=== PATIENT | female | born 2000 | race Caucasian/White ===

== ENCOUNTER 2021-11-16 21:07 | Emergency (ER) | payer MEDICAID ==
[~2021-11-16] VITALS: Ht 154.9 cm; Wt 79.4 kg
[2021-11-16] MEDS ORDERED: AMOCLA875 PO (21:45)
== END 2021-11-16 21:50 | disposition home or self-care (01) ==
LOC: ER 21:07
DX: K04.7 Periapical abscess without sinus (principal); F17.200 Nicotine dependence, unspecified, uncomplicated
CPT/HCPCS: A9270

== ENCOUNTER 2022-01-27 21:27 | Emergency (ER) | payer OTHER ==
[~2022-01-27] VITALS: Ht 154.9 cm; Wt 86.2 kg
[~2022-01-27 21:27] MED LIST: AMOCLA875 PO
[2022-01-27] MEDS ORDERED: AMOCLA875 PO (22:17)
== END 2022-01-27 22:25 | disposition home or self-care (01) ==
LOC: ER 21:27
DX: K04.7 Periapical abscess without sinus (principal); F17.200 Nicotine dependence, unspecified, uncomplicated
CPT/HCPCS: 99282; A9270

== ENCOUNTER 2022-05-11 06:05 | Emergency (ER) | payer OTHER ==
[~2022-05-11] VITALS: Ht 154.9 cm; Wt 86.2 kg
== END 2022-05-11 06:39 | disposition home or self-care (01) ==
LOC: ER 06:05
DX: Z11.4 Encounter for screening for human immunodeficiency virus [HIV] (principal); Z87.891 Personal history of nicotine dependence
CPT/HCPCS: 99282

== ENCOUNTER 2022-09-12 11:32 | Emergency (ER) | payer OTHER ==
[~2022-09-12] VITALS: Ht 154.9 cm; Wt 64.9 kg
[2022-09-12 12:24] LABS: BASOPHILS ABSOLUTE AUTO 0.02 K/mm3 (0.00-0.23); BASOPHILS PERCENT AUTO 0 % (0-2); EOSINOPHILS ABSOLUTE AUTO 0.01 K/mm3 (0.00-0.68); EOSINOPHILS PERCENT AUTO 0 % (0-6); Hematocrit 37.9 % (33.0-51.0); Hemoglobin 11.9 g/dL (11.5-16.0); IMMATURE GRAN ABSOLUTE AUTO 0.02 K/mm3 (0.00-0.10); IMMATURE GRAN PERCENT AUTO 0 % (0-1); LYMPHOCYTES ABSOLUTE AUTO 1.75 K/mm3 (0.84-5.20); LYMPHOCYTES PERCENT AUTO 17 % (21-46); MONOCYTES ABSOLUTE AUTO 0.56 K/mm3 (0.16-1.47); MONOCYTES PERCENT AUTO 6 % (4-13); Mean Corpuscular HGB 24.1 pg (26.0-34.0); Mean Corpuscular HGB Conc 31.4 g/dL (31.5-36.5); Mean Corpuscular Volume 77 fL (80-100); Mean Platelet Volume 10.4 fL (9.1-12.4); NEUTROPHILS ABSOLUTE AUTO 7.69 K/mm3 (1.96-9.15); NEUTROPHILS PERCENT AUTO 77 % (41-73); Platelet Count 250 K/mm3 (150-400); RDW Coefficient Variation 16.2 % (11.7-14.2); RDW Standard Deviation 45.7 fL (35.1-46.3); Red Blood Cell Count 4.94 M/mm3 (3.80-5.20); White Blood Cell Count 10.05 K/mm3 (4.00-11.30)
[2022-09-12 13:11] LABS: Albumin, Blood 3.6 g/dL (3.4-5.0); Albumin/Globulin Ratio 1.1 (0.8-1.8); Bilirubin, Total 0.3 mg/dL (0.1-1.0); Bun/Creatinine Ratio 22.5 (12.0-20.0); Calcium, Blood 8.8 mg/dL (8.5-10.1); Creatinine, Blood 0.67 mg/dL (0.40-1.00); Globulin, Blood 3.4 g/dL (2.2-4.0); Potassium, Blood 4.1 mmol/L (3.5-5.5)
[2022-09-12 14:35] LABS: Source, Urine Clean Catch
[2022-09-12 14:40] LABS: Appearance, Urine Clear (Clear); Bilirubin, Urine Neg (Neg); Blood, Urine Neg (Neg); Color, Urine Yellow (P-Yellow); Glucose Qualitative, Urine Neg (Neg); Ketones, Urine 2+ (Neg); Leukocyte Esterase, Urine 1+ (Neg); Nitrite, Urine Neg (Neg); Protein, Urine 1+ (Neg); Urobilinogen, Urine NORM (Normal)
[2022-09-12 14:52] LABS: Mucus Mod (0-Heavy)
[2022-09-12 14:53] LABS: Bacteria Few /hpf; Red Blood Cells, Urine 0-2 /hpf (0-2); Renal Epithelial Rare /hpf (0-Rare); Squamous Epithelial Cells Rare /hpf (Few)
== END 2022-09-12 14:29 | disposition left against medical advice (07) ==
LOC: ER 11:32
PROVIDERS: Physician Assistant
DX: R11.2 Nausea with vomiting, unspecified (principal); Z53.21 Procedure and treatment not carried out due to patient leaving prior to being seen by health care provider
CPT/HCPCS: 36415; 80053; 81001; 81025; 83690; 85025; 87086; J2405

== ENCOUNTER 2023-06-08 23:44 | Emergency (ER) | payer OTHER ==
[~2023-06-08] VITALS: Ht 154.9 cm; Wt 81.7 kg
[2023-06-09 00:43] VITALS: BP 111/95
[2023-06-09] MEDS ORDERED: AMOX500 PO (02:04)
== END 2023-06-09 02:13 | disposition home or self-care (01) ==
LOC: ER 23:44
DX: K04.7 Periapical abscess without sinus (principal); K02.9 Dental caries, unspecified; Z87.891 Personal history of nicotine dependence
CPT/HCPCS: 99283

== ENCOUNTER 2023-08-05 11:58 | Emergency (ER) | payer OTHER ==
[~2023-08-05] VITALS: Ht 154.9 cm; Wt 68.0 kg
[~2023-08-05 11:58] MED LIST changes: +AMOX500 PO
[2023-08-05 12:54] VITALS: BP 123/93
[2023-08-05] MEDS ORDERED: Percocet 5-3251 EACH PO (13:28)
== END 2023-08-05 13:46 | disposition home or self-care (01) ==
LOC: ER 11:58
DX: K08.89 Other specified disorders of teeth and supporting structures (principal); Z87.891 Personal history of nicotine dependence
CPT/HCPCS: 96372; 99282-25; J1885

== ENCOUNTER 2024-05-26 00:03 | Emergency (ER) | payer OTHER ==
[~2024-05-26] VITALS: Ht 154.9 cm; Wt 81.7 kg
[~2024-05-26 00:03] MED LIST changes: +Percocet 5-3251 EACH PO
[2024-05-26 00:17] VITALS: BP 138/88
[2024-05-26] MEDS ORDERED: DROSPIRENONE-E1 EAC4 PO (00:20)
[2024-05-26] MEDS ORDERED: Roxicodone5 MG PO (00:26)
[2024-05-26] MEDS ORDERED: IBUP600 PO (00:29)
[2024-05-26] MEDS ORDERED: Veetids 500500 MG PO (00:29)
[2024-05-26] MEDS ORDERED: Penicillin V Potassium 250 MG Tab PO ONE (00:30)
[2024-05-26] MEDS ORDERED: Naproxen 250 MG TAB PO ONE (00:30)
[2024-05-26] MEDS ORDERED: RX Prepack 6 Tabs Oxycodone 5mg UD ONE (00:30)
[2024-05-26] MEDS ORDERED: Acetaminophen 500 MG Tab PO ONE (00:30)
== END 2024-05-26 01:00 | disposition home or self-care (01) ==
LOC: ER 00:03
DX: K02.9 Dental caries, unspecified (principal); Z87.891 Personal history of nicotine dependence; Z79.810 Long term (current) use of selective estrogen receptor modulators (SERMs)
CPT/HCPCS: 99282; A9270

== ENCOUNTER 2024-06-07 18:01 | Emergency (ER) | payer OTHER ==
[~2024-06-07] VITALS: Ht 154.9 cm; Wt 72.6 kg
[~2024-06-07 18:01] MED LIST changes: +DROSPIRENONE-E1 EAC4 PO; +IBUP600 PO; +Roxicodone5 MG PO; +Veetids 500500 MG PO
[2024-06-07 18:39] VITALS: BP 137/101
[2024-06-07] MEDS ORDERED: Percocet 5-3251 EACH PO (18:44)
[2024-06-07] MEDS ORDERED: IBUP800 PO (18:44)
[2024-06-07] MEDS ORDERED: PENVK500 PO (18:44)
== END 2024-06-07 18:46 | disposition home or self-care (01) ==
LOC: ER 18:01
DX: K04.7 Periapical abscess without sinus (principal); K02.9 Dental caries, unspecified; Z87.891 Personal history of nicotine dependence; Z79.899 Other long term (current) drug therapy
CPT/HCPCS: 99282